=== PATIENT | female | born 1990 | race Caucasian/White ===

== ENCOUNTER → 2022-09-16 07:09 | Outpatient (CLI) | payer OTHER, SELFPAY ==
--- NOTE | ~2022-09-16 | MR_ITS ---
EXAMINATION: MR lumbar spine wo con DATE: 09/16/2022 07:36 INDICATION: Lumbago. Left-sided sciatica. TECHNIQUE: Magnetic resonance imaging (MRI) of the lumbar spine was performed without intravenous con trast. Sequences included sagittal T2-weighted FSE, sagittal T2-weighted FS FSE, sagittal T1-weighted FSE, and axial T2-weighted FSE. COMPARISON: Lumbar spine MRI 10/06/2016 FINDINGS: Bone alignment is normal. There are Schmorl's nodes at multiple levels. There is mildly dec reased disc height at L5-S1. The distal spinal cord signal intensity is normal. The conus medullaris is at L1. The following disc levels are specifically discussed: L1-L2: The disc does not extend beyond the endplate margin. There is mild bilateral facet joint osteo arthritis. There is no neural foraminal stenosis. There is no central canal stenosis. L2-L3: The disc does not extend beyond the endplate margin. There is mild bilateral facet joint osteo arthritis. There is no neural foraminal stenosis. There is no central canal stenosis. L3-L4: The disc is bulging with superimposed central extrusion. There is mild bilateral facet joint o steoarthritis. There is mild bilateral neural foraminal stenosis. There is mild central canal stenosi s. L4-L5: The disc is bulging with superimposed central extrusion. There is mild bilateral facet joint o steoarthritis. There is mild bilateral neural foraminal stenosis. There is mild central canal stenosi s. L5-S1: The disc is bulging with superimposed left subarticular zone extrusion with mass effect on lef t S1 nerve root in left lateral recess. There is mild bilateral facet joint osteoarthritis. There is mild right and moderate left neural foraminal stenosis. There is mild central canal stenosis at the m idline. There is severe stenosis of left lateral recess. IMPRESSION: 1. Worsened extrusion at L5-S1 with mass effect on left S1 nerve root and moderate left-sided neural foraminal stenosis. 2. Mild spondylosis at other levels. Reviewed, dictated and finalized at location A. [employer]RARIAN IMPRESSION: 1. Worsened extrusion at L5-S1 with mass effect on left S1 nerve root and moder ate left-sided neural foraminal stenosis. 2. Mild spondylosis at other levels.
== END ==
PROVIDERS: PCP Emergency Medicine; Visit Provider Emergency Medicine
DX: M54.42 Lumbago with sciatica, left side (principal); M51.26 Other intervertebral disc displacement, lumbar region; M47.896 Other spondylosis, lumbar region
CPT/HCPCS: 72148

== ENCOUNTER 2023-04-18 20:11 | Emergency (ER) | payer OTHER, SELFPAY ==
[2023-04-18 20:13] VITALS: BP 116/72; PULSE 83; RESP 15; TEMP 36.6; O2SAT 100
--- NOTE | 2023-04-18 20:24 | ED.WOUNDLAC ---
HPI - Wound/Laceration General Chief Complaint: Wound/Laceration <DARRYL Sorto Last Filed: 04/19/23 00:29> Stated Complaint: Left 5th finger laceration <DARRYL Sorto Last Filed: 04/19/23 00:29> Time Seen by Provider: 04/18/23 20:17 <DARRYL Sorto Last Filed: 04/19/23 00:29> History of Present Illness HPI narrative: Patient is a 32-year-old female here for evaluation of a laceration sustained to her left fifth finger about 4 minutes prior to arrival. 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 She had large amount of bleeding has some numbness and tingling tip of her finger. She is able to move the finger without trouble. She is unsure of her last tetanus shot. No other injury sustained in the accident. <DARRYL Sorto Last Filed: 04/19/23 00:29> Related Data Home Medications: Home Medications Medication Instructions Recorded Confirmed No Home Medications 11/02/22 11/02/22 <DARRYL Sorto Last Filed: 04/19/23 00:29> Allergies/Adverse Reactions: Allergies Allergy/AdvReac Type Severity Reaction Status Date / Time No Known Allergies Allergy Verified 11/02/22 07:48 <DARRYL Sorto Last Filed: 04/19/23 00:29> Review of Systems Review of Systems: Gen: Denies fevers or chills Eyes: Denies eye pain or visual change ENT: Denies congestion Respiratory: Denies shortness of breath or cough CV: Denies chest pain or palpitations GI: Denies abdominal pain nausea, emesis or diarrhea denies burning, urgency, frequency or hematuria Musculoskeletal: Denies back pain or muscle pain Neuro: Denies numbness, tingling, weakness or focal weakness Skin: Reports laceration Except as documented, all other systems reviewed and negative <DARRYL Sorto Last Filed: 04/19/23 00:29> PMFSH Past Medical History Medical History: Medical History Lumbar back pain <Kate Montalvo PA-C - Last Filed: 04/19/23 00:29> Social History Social History: Social History (Updated 11/02/22 @ 10:00 by Cheri Davila) Smoking status: Never smoker Alcohol intake: current Lack of Transportation: No Lack of Food: Never True Current Housing: I Have Housing Concerned About Future Housing: No Difficulty Paying Gas/Electric Bills: No Difficulty Paying for Meds: No Currently Unemployed: No Difficulty w/ Childcare or Family Care: No <Kate Montalvo PA-C - Last Filed: 04/19/23 00:29> Exam Narrative: Gen: Alert, oriented, no acute distress Eyes: EOMI, no icterus Pulm: Respirations even and unlabored, symmetric thorax expansion, no audible stridor or visible cyanosis CV: Regular rate per telemetry GI: No distension, no voluntary/involuntary guarding Neuro: decreased sensation to the left fifth fingertip. AOx4, moves all extremities without apparent difficulty or weakness, follows commands MSK: Patient has acrylic nails on but the fingertip itself is warm to touch and pink. She has full range of motion in her affected finger. Skin: There is a 2 cm linear laceration to the ulnar aspect of the left fifth digit distal to the DIP with large amount of bleeding. Wound was explored under bloodless field after tourniquet was applied without foreign bodies Psych: Normal mood/affect, insight/judgement good, adequate fund of knowledge, recent/remote memory intact <Kate Montalvo PA-C - Last Filed: 04/19/23 00:29> Course [employer] MACHINE/PA Physician Supervision This is a was performed by both a physician and an APC. I performed all aspects of the MDM as documented w/ the following additions: 32-year-old female presenting with finger laceration. Finger repaired with sutures. Pierce components procedure performed my supervision. Derrick
[2023-04-18] MEDS: TETANUS,DIPHTHERIA,AC PERTUSSIS ADULT (0.5 ML) BOOSTRIX IM (20:33)
== END 2023-04-18 21:29 | disposition home or self-care (01) ==
PROVIDERS: Emergency Provider Physician Assistant; PCP Emergency Medicine
DX: S61.217A Laceration without foreign body of left little finger without damage to nail, initial encounter (principal); W26.0XXA Contact with knife, initial encounter; Z23 Encounter for immunization
CPT/HCPCS: 12001; 90471; 90715; 99282

== ENCOUNTER → 2023-07-07 11:51 | Outpatient (CLI) | payer OTHER, SELFPAY ==
--- NOTE | ~2023-07-07 | XR_ITS ---
EXAMINATION: XR lumbar spine min 4V DATE: 07/07/2023 13:18 INDICATION: Low back pain, status post lumbar decompression surgery in December 2022 TECHNIQUE: Anteroposterior and lateral in neutral, flexion and extension views of the lumbar spine, a nd cone-down lateral view of the lumbosacral junction were obtained. COMPARISON: 12/28/2013 FINDINGS: There is chronic moderate loss of intervertebral disc space height at L5-S1. Bone alignment is normal. There is no hypermobility with flexion or extension. The vertebral body heights are maint ained. There is moderate facet joint osteoarthritis at L5-S1. IMPRESSION: 1. Mild lumbar spondylosis without acute findings. Reviewed, dictated and finalized at location F.
== END ==
DX: Z48.811 Encounter for surgical aftercare following surgery on the nervous system (principal); M47.896 Other spondylosis, lumbar region
CPT/HCPCS: 72110

== ENCOUNTER → 2023-08-25 10:36 | Outpatient (CLI) | payer OTHER, SELFPAY ==
--- NOTE | ~2023-08-25 | MR_ITS ---
EXAMINATION: MR lumbar spine wo con DATE: 08/25/2023 11:26 INDICATION: Low back pain radiating down left leg. TECHNIQUE: Magnetic resonance imaging (MRI) of the lumbar spine was performed without intravenous con trast. Sequences included sagittal T2-weighted FSE, sagittal T2-weighted FS FSE, sagittal T1-weighted FSE, and axial T2-weighted FSE. COMPARISON: Lumbar spine MRI 09/16/2022 FINDINGS: There is 7 degrees levocurvature of lumbar spine. Vertebral body heights are normal. There is mildly decreased disc height at L5-S1. The distal spinal cord signal intensity is normal. The conu s medullaris is at L1. The following disc levels are specifically discussed: L1-L2: The disc does not extend beyond the endplate margin. There is no facet joint osteoarthritis. T here is no neural foraminal stenosis. There is no central canal stenosis. L2-L3: The disc does not extend beyond the endplate margin. There is no facet joint osteoarthritis. T here is no neural foraminal stenosis. There is no central canal stenosis. L3-L4: There is a central extrusion. There is mild bilateral facet joint osteoarthritis. There is mil d right neural foraminal stenosis. There is mild central canal stenosis. L4-L5: There is a central protrusion with annular fissure. There is mild bilateral facet joint osteoa rthritis. There is mild right neural foraminal stenosis. There is mild central canal stenosis. L5-S1: There are changes of left hemilaminotomy. The disc is bulging. There is material in left subar ticular zone. There is mild bilateral facet joint osteoarthritis. There is moderate left neural tani inal stenosis. There is mild central canal stenosis. There is severe stenosis of left lateral recess. IMPRESSION: 1. Material in left subarticular zone at L5-S1, which may be granulation tissue and/or recurrent or r esidual extrusion. Consider lumbar spine MRI without and with contrast to help differentiate. 2. Mild spondylosis at other levels. Reviewed, dictated and finalized at location E. IMPRESSION: 1. Material in left subarticular zone at L5-S1, which may be granulation tissue and/or recurrent or residual extrusion. Consider lumbar spine MRI without and with contrast to help differentiate. 2. Mild spondylosis at other levels.
== END ==
PROVIDERS: Visit Provider Emergency Medicine
DX: M54.42 Lumbago with sciatica, left side (principal); M47.896 Other spondylosis, lumbar region
CPT/HCPCS: 72148

== ENCOUNTER 2024-02-11 12:11 | Outpatient (CLI) | payer OTHER, SELFPAY ==
--- NOTE | ~2024-02-11 | XR_ITS ---
EXAMINATION: XR lumbar spine min 4V DATE: 02/11/2024 12:33 INDICATION: Low back pain. TECHNIQUE: 4 views of lumbar spine including standing views and flexion and extension views were obta ined. COMPARISON: Lumbar spine radiograph 07/07/2023 FINDINGS: There is 7 degrees levocurvature of thoracolumbar spine. There are changes of anterior and posterior fusion procedures at L5-S1 with interbody devices and pedicle screws. Vertebral body height s are normal. Intervertebral disc heights are normal. There is no abnormal motion with flexion or ext ension. There is multilevel mild facet joint osteoarthritis. IMPRESSION: 1. Anterior and posterior fusion procedures at L5-S1. Reviewed, dictated and finalized at location E.
== END 2024-02-11 12:12 ==
DX: M54.50 Low back pain, unspecified (principal); Z98.1 Arthrodesis status
CPT/HCPCS: 72110